=== PATIENT | female | born 1945 | race Caucasian/White ===

== ENCOUNTER 2017-02-28 16:47 | Emergency (ER) | payer MEDICARE, OTHER ==
[2017-02-28 17:46] VITALS: BP 130/72
--- NOTE | 2017-04-07 15:20 | ED Physician Documentation ---
General Adult - HISTORIAN Historian: patient, paramedics - HPI Stated Complaint: rectal discharge Chief Complaint: General Adult Additional Information: pt to ed via [facility] [place] c/o mucous rectal discharge found today when [facility] DON did rectal exam for impaction. chart revealed had normal bm yesterday reportedly normal brown color Onset: days ago (TODAY) Severity: moderate - ROS CONST: other (this pt non communicative w/ apparent severe dementia and prev cva ) - PAST HX Past History: other (cva dementia) Allergies/Adverse Reactions: Allergies Allergy/AdvReac Type Severity Reaction Status Date / Time aspirin Allergy Verified 02/28/17 17:15 Home Medications: Ambulatory Orders Medication Instructions Recorded Acetaminophen [Tylenol] 650 mg PO Q4 02/28/17 Cholecalciferol (Vitamin D3) 5,000 unit PO QDAY 02/28/17 [Vitamin D3] Clonazepam [Clonazepam] 1 mg PO HS 02/28/17 Clonidine HCl [Catapres] 0.1 mg PO PRN 02/28/17 Dextromethorphan HBr/Quinidine 1 each PO BID 02/28/17 [Nuedexta] Divalproex Sodium [Depakote] 500 mg PO BID 02/28/17 Docusate Sodium [Colace] 100 mg PO BID 02/28/17 Gabapentin [Gabapentin] 100 mg PO 0712 02/28/17 Gabapentin [Gabapentin] 300 mg PO 19 02/28/17 Ipratropium/Albuterol Sulfate 3 ml NEB QID PRN 02/28/17 [Duoneb] Memantine HCl/Donepezil HCl 1 each PO HS 02/28/17 [Namzaric 28 mg-10 mg Capsule] Metoprolol Tartrate [Lopressor] 100 mg PO BID 02/28/17 Multivitamin [Tab-A-Sharon] 1 each PO DAILY 02/28/17 Quetiapine Fumarate [Seroquel Xr] 150 mg PO TID 02/28/17 Sertraline HCl [Zoloft] 100 mg PO DAILY 02/28/17 Simvastatin [Zocor] 20 mg PO HS 02/28/17 Tramadol HCl [Ultram] 50 mg PO Q6H PRN 02/28/17 Trazodone HCl [Desyrel] 50 mg PO HS 02/28/17 Vitamin B Complex [Balanced B-100] 1 each PO QDAY 02/28/17 - SOCIAL HX Smoking History: non-smoker Alcohol Use: none Drug Use: none - FAMILY HX Family History: No - VITAL SIGNS Vital Signs: Vital Signs Temp Pulse Resp BP Pulse Ox 97.3 F L 64 20 152/97 94 02/28/17 16:47 02/28/17 16:47 02/28/17 16:47 02/28/17 16:47 02/28/17 16:47 - REVIEWED ASSESSMENTS Nursing Assessment Reviewed: Yes Vitals Reviewed: Yes ED Results Lab/Radiology - Orders Orders: ED Orders Category Date Time Status WOUND CULTURE Stat Lab 02/28/17 17:39 Ordered General Adult Physical Exam - PHYSICAL EXAM GENERAL APPEARANCE: moderate distress EENT: eye inspection normal NECK: normal inspection RESPIRATORY: no resp distress, chest non-tender, breath sounds normal CVS: reg rate & rhythm ABDOMEN: soft, tenderness (slight) RECTAL: decreased tone, other (mucoid discharge - culture taken) SKIN: warm/dry, normal color. No: cyanosis EXTREMITIES: No: normal range of motion, no evidence of injury NEURO: depressed mood/affect. No: oriented X3, motor nml, sensation nml, mood/ affect nml Discharge Clincal Impression: rectal discharge unc etiology, dementia s/p cva Referrals: Osvaldo Mcgee MD [Primary Care Provider] - 2 Days Home Medications: Ambulatory Orders Acetaminophen [Tylenol] 650 mg PO Q4 02/28/17 Cholecalciferol (Vitamin D3) [Vitamin D3] 5,000 unit PO QDAY 02/28/17 Clonazepam [Clonazepam] 1 mg PO HS 02/28/17 Clonidine HCl [Catapres] 0.1 mg PO PRN 02/28/17 Dextromethorphan HBr/Quinidine [Nuedexta] 1 each PO BID 02/28/17 Divalproex Sodium [Depakote] 500 mg PO BID 02/28/17 Docusate Sodium [Colace] 100 mg PO BID 02/28/17 Gabapentin [Gabapentin] 100 mg PO 0712 02/28/17 Gabapentin [Gabapentin] 300 mg PO 19 02/28/17 Ipratropium/Albuterol Sulfate [Duoneb] 3 ml NEB QID PRN 02/28/17 Memantine HCl/Donepezil HCl [Namzaric 28 mg-10 mg Capsule] 1 each PO HS Metoprolol Tartrate [Lopressor] 100 mg PO BID 02/28/17 Multivitamin [Tab-A-Sharon] 1 each PO DAILY 02/28/17 Quetiapine Fumarate [Seroquel Xr] 150 mg PO TID 02/28/17 Sertraline HCl [Zoloft] 100 mg PO DAILY 02/28/17 Simvastatin [Zocor] 20 mg PO HS 02/28/17 Tramadol HCl [Ultram] 50 mg PO Q6H PRN 02/28/17 Trazodone HCl [Desyrel] 50 mg PO HS 02/28/17 Vitamin B Complex [Balanced B-100] 1 each PO QDAY 02/28/17 Comments: ret to tn await c and s Condition: Fair Disposition: 01 HOME, SELF-CARE Decision to Admit: NO Decision Time: 17:36
== END 2017-02-28 17:44 | disposition home or self-care (01) ==
LOC: ED 16:47
DX: R19.5 Other fecal abnormalities (principal); F03.90 Unspecified dementia, unspecified severity, without behavioral disturbance, psychotic disturbance, mood disturbance, and anxiety; Z86.73 Personal history of transient ischemic attack (TIA), and cerebral infarction without residual deficits
CPT/HCPCS: 87070; 87186; 99283